=== PATIENT | female | born 1980 | race Caucasian/White ===

== ENCOUNTER 2023-10-07 12:12 | Emergency (ER) | payer MEDICARE, SELFPAY ==
--- NOTE | ~2023-10-07 | XR_ITS ---
EXAMINATION: XR knee LT min 4V DATE: 10/07/2023 14:51 INDICATION: Left knee pain and swelling. TECHNIQUE: 4 views of left knee were obtained. COMPARISON: None. FINDINGS: Bone alignment is normal. No fracture. Joint spaces are normal. No knee joint effusion. IMPRESSION: 1. Normal left knee. Reviewed, dictated and finalized at location A. IMPRESSION: 1. Normal left knee.
--- NOTE | ~2023-10-07 | US_ITS ---
EXAMINATION: US venous doppler [facility] DATE: 10/07/2023 15:04 INDICATION: L calf and knee pain . TECHNIQUE: Grayscale images without and with compression and Doppler images of the left lower extremi ty veins were obtained. COMPARISON: None FINDINGS: The left common femoral vein, profunda (deep) femoral vein, femoral vein, popliteal vein, peroneal v ein, posterior tibial veins, gastrocnemius vein, and greater saphenous vein are patent. IMPRESSION: Patent left lower extremity veins. No evidence of deep venous thrombosis. Reviewed, dictated and finalized at location K.
[2023-10-07 12:37] VITALS: BP 149/82; PULSE 115; RESP 16; TEMP 36.4; O2SAT 97
--- NOTE | 2023-10-07 13:07 | ED.LOWEXIN ---
HPI - Extremity Injury (Lower) General Chief Complaint: Extremity Injury, Lower Stated Complaint: left knee swelling Time Seen by Provider: 10/07/23 13:06 Source: patient Mode of arrival: ambulatory Limitations: no limitations History of Present Illness HPI Narrative: Patient is a 43 y/o female who presents to the ED with c/o L knee swelling. Patient reports she woke up yesterday morning with pain and swelling in her L lower anterior knee. 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 States she worked 11 hour shift prior to when the pain began. Denies any known injury. Is able to ambulate, but has pain with this. Has been taking Tylenol for the pain without much relief. Had to call off work. Denies numbness. Denies history of blood clots. Review of Systems Review of Systems: CONSTITUTIONAL: Denies fever, chills, or sweats. MUSCULOSKELETAL: See HPI NEUROLOGIC: Denies headache, dizziness, numbness, or weakness. All systems reviewed & are unremarkable except as noted in HPI and below Exam Narrative: GENERAL: Well appearing, morbidly obese with BMI of 40.6, non-toxic, in no acute distress. HEAD: Normocephalic, atraumatic. RESPIRATORY: Airway patent, respirations nonlabored. CARDIOVASCULAR: Regular rate and rhythm. Pedal pulses intact and easily palpable. MUSCULOSKELETAL: Moves all extremities. Tenderness to palpation diffusely throughout left lower anterior knee. Mild swelling noted. No erythema or warmth. Mild tenderness throughout the lower calf, no appreciable lower extremity swelling. Sensation intact. SKIN: Warm, dry, normal color. NEURO: A&O X3. Speech clear. Steady gait. No ataxic movements. PSYCHIATRIC: Appropriate mood and affect. Normal interaction. Course Vital Signs Vital signs: Vital Signs Temperature 97.5 F L 10/07/23 12:37 Pulse Rate 115 H 10/07/23 12:37 Respiratory Rate 16 10/07/23 12:37 Blood Pressure 149/82 H 10/07/23 12:37 Pulse Oximetry 97 10/07/23 12:37 Oxygen Delivery Room Air 10/07/23 12:37 Temperature 97.5 F L 10/07/23 12:37 Pulse Rate 100 10/07/23 15:14 Respiratory Rate 20 10/07/23 15:14 Blood Pressure 135/83 10/07/23 15:14 Pulse Oximetry 96 10/07/23 15:14 Oxygen Delivery Room Air 10/07/23 12:37 MDM - Extremity Injury (Lower) MDM Narrative Medical decision making narrative: Patient?s injury is consistent with musculoskeletal etiology. No signs of neurologic or vascular compromise on physical examination. Compartments are soft without signs of compartment syndrome. XR of left knee unremarkable. No joint effusion or osseous abnormality. Venous Doppler ultrasound of left lower extremity was also obtained and negative for DVT. Pain is consistent with knee strain. Patient is felt to be stable for discharge home and further outpatient management and treatment. Given Ned bandage in the ED. discussed rice treatment, follow-up with orthopedics if pain continues. Discussed return precautions. Patient given work note. Discharged in stable condition. Medical Records Attestation: I reviewed the patient's medical records. Imaging Data Attestation: I personally reviewed and interpreted this imaging study as follows: Radiologist's impression: ITS Impressions Knee X-Ray 10/07/23 14:52 IMPRESSION: 1. Normal left knee. Venous Doppler Study 10/07/23 15:08 IMPRESSION: Patent left lower extremity veins. No evidence of deep venous thrombosis. Discharge Plan Discharge Clinical Impression: Strain of left knee Qualifiers: Encounter type: initial encounter Qualified Code(s): S86.912A - Strain of unspecified muscle(s) and tendon(s) at lower leg level, left leg, initial encounter Patient Disposition: Home, Self-Care Condition: Stable Instructions: Antibiotic Form, Knee Sprain (ED), P.R.I.C.E. Treatment (ED) Additional Instructions: Your imaging did not show any mayte
[2023-10-07] MEDS: HYDROcodone/acetaminophen (*CRX) 5-325 MG TABLET 1 TAB PO (13:25)
[2023-10-07 15:14] VITALS: BP 135/83; PULSE 100; RESP 20; O2SAT 96
== END 2023-10-07 15:26 | disposition home or self-care (01) ==
PROVIDERS: Emergency Provider Physician Assistant
DX: S86.912A Strain of unspecified muscle(s) and tendon(s) at lower leg level, left leg, initial encounter (principal); M79.662 Pain in left lower leg; X50.9XXA Other and unspecified overexertion or strenuous movements or postures, initial encounter
CPT/HCPCS: 73564; 93971; 99284; A9270

== ENCOUNTER 2023-10-10 17:40 | Inpatient (IN) | payer MEDICARE, SELFPAY ==
[2023-10-10] VITALS (7 sets, daily range): BP systolic 91–139; BP diastolic 63–93; PULSE 73–103; RESP 14–18; TEMP 36.1–36.7; O2SAT 96–99; BMI 42.0
--- NOTE | ~2023-10-10 | CT_ITS ---
Procedure: CT knee LT wo con Ordering provider: Laura Gonzalez MD History: . poss occult fx? . Comparison: None. Technique: Thin slice axial CT of the No IV contrast was given. Sagittal and coronal reformatted imag es were also obtained and reviewed. Radiation reduction technique utilized. Findings: BONES: Artifact is seen in the area of the distal femur. No definite fracture. JOINT SPACES: Normal. SOFT TISSUES: Lucency is seen in the biceps muscle posterior to the knee which may indicate a hemato ma or lipoma and measures 1.9 cm. Follow-up advised. Opacification in the lateral and medial collater al ligaments is noted in the area of the tibia. IMPRESSION: No definite fractures seen. Lucency is seen in the biceps muscle posterior to the knee which may indicate a hematoma or lipoma a nd measures 1.9 cm. Follow-up advised. Reviewed, dictated and finalized at location A. IMPRESSION: No definite fractures seen. Lucency is seen in the biceps muscle posterior to the knee which may indicate a hematoma or lipoma and measures 1.9 cm. Follow-up advised.
--- NOTE | 2023-10-10 17:56 | ECG_ITS ---
[facility] [address] Test Date: 2023-10-10 Pat Name: Esther Marc Department: Room: Gender: F Correspondence Analyst: : 1980 Requested By: Laura Moreno Order Number: [id number] Flavio MD: Jaswant Talbot M.D. Measurements Intervals [place] Rate: 91 P: -12 KS: 151 QRS: 6 QRSD: 78 T: 5 QT: 346 QTc: 427 Interpretive Statements SINUS RHYTHM LOW QRS VOLTAGE IN PRECORDIAL LEADS [QRS DEFLECTION < 1.0 mV IN CHEST LEADS] POOR R-WAVE PROGRESSION ABNORMAL ECG No previous ECG available for comparison Electronically Signed On 10-11-2023 08:59:37 CDT by Jaswant Talbot M.D.
--- NOTE | 2023-10-10 17:57 | PC.NURSE ---
poison control called. Pt well over toxic level. recommend starting acetadote
--- NOTE | 2023-10-10 17:59 | ED.OVERDOSE ---
HPI - Overdose General Chief Complaint: Overdose Stated Complaint: accidental OD Time Seen by Provider: 10/10/23 17:49 Source: patient Mode of arrival: ambulatory Limitations: no limitations History of Present Illness HPI Narrative: Patient presents with accidental Tylenol overdose. She took 3000mg acetaminophen this morning for left knee pain, peristant after already being seen in the ED for this complaint a few days ago. She called her PCP and beleived she had been told to take an additional 14,000 mg acetaminophen which she did at approximately 1pm. Total 17,000mg in the form of 500mg tabletes. Adamently denies SI. She is now having RUQ abdominal pain and nausea. Related Data Home Medications Medication Instructions Recorded Confirmed Paxil 5 mg PO DAILY 10/11/23 10/11/23 Protonix 40 mg PO DAILY 10/11/23 10/11/23 albuterol sulfate 90 mcg/actuation 90 mcg inhalation DAILY 10/11/23 10/11/23 aerosol inhaler albuterol sulfate 90 mcg/actuation 90 mcg inhalation PRN PRN SOB 10/11/23 10/11/23 aerosol inhaler bupropion HCl 300 mg 24 hr tablet, 300 mg PO DAILY 10/11/23 10/11/23 extended release clonazepam 1 mg tablet 1 mg PO DAILY 10/11/23 10/11/23 dextroamphetamine-amphetamine 15 30 mg PO DAILY 10/11/23 10/11/23 mg tablet dextroamphetamine-amphetamine 15 30 mg PO HS 10/11/23 10/11/23 mg tablet nicotine 7 mg transdermal DAILY 10/11/23 10/11/23 topiramate 100 mg tablet 100 mg PO DAILY 10/11/23 10/11/23 Allergies Allergy/AdvReac Type Severity Reaction Status Date / Time amoxicillin [From Augmentin] Allergy Rash Verified 10/10/23 18:04 Antihistamines - Alkylamine Allergy Anxiety Verified 10/10/23 18:03 ciprofloxacin Allergy Rash Verified 10/10/23 18:03 clavulanic acid Allergy Rash Verified 10/10/23 18:04 [From Augmentin] cyclobenzaprine Allergy Muscle Verified 10/10/23 18:03 Spasms dicyclomine Allergy Rash Verified 10/10/23 18:03 diphenhydramine Allergy Anxiety Verified 10/10/23 18:03 gabapentin Allergy Itching Verified 10/10/23 18:03 indomethacin Allergy Unknown Verified 10/10/23 18:04 ketorolac Allergy Rash Verified 10/10/23 18:03 methocarbamol Allergy Agitated Verified 10/10/23 18:03 metoclopramide Allergy Hives Verified 10/10/23 18:03 montelukast Allergy Anxiety Verified 10/10/23 18:03 naproxen Allergy Nausea Verified 10/10/23 18:03 nickel Allergy Blister Verified 10/10/23 18:03 NSAIDS (Non-Steroidal Allergy Nausea and Verified 10/10/23 18:03 Anti-Inflamma Vomiting prochlorperazine Allergy Anxiety Verified 10/10/23 18:03 PMFSH Family History Family History Mother Thyroid activity decreased Hypertension Breast cancer Heart disease Father Heart disease Parkinson disease Grandparent Kidney cancer, primary, with metastasis from kidney to other site Father FHx: stomach cancer Sibling Parkinson disease Social History Social History Years smoked: 28 Smoking status: Current every day smoker Tobacco type: cigarettes Alcohol intake: never Substance use: never Substance use type: does not use Do You Feel Safe in your Home?: Yes Lack of Transportation: YES Lack of Food: Sometimes True Current Housing: I Have Housing Concerned About Future Housing: YES Difficulty Paying Gas/Electric Bills: YES Difficulty Paying for Meds: YES Currently Unemployed: No Education: High School Diploma/GED Difficulty w/ Childcare or Family Care: No Spiritual care concerns: No Exam Narrative: GENERAL: , well-nourished, and in no acute distress though appears uncomfortable and nauseated. HEAD: Normocephalic, atraumatic. EYES: Non injected, non icteric. ENT: Nares clear, no rhinorrhea or epistaxis. NECK: Supple. CHEST: Speaking in full sentences. No respiratory distress. HEART: Regular rate and rhythm. . ABDOMEN: Soft, nondistended. Mild TTP in RUQ. EXTR
[2023-10-10] MEDS: SODIUM CHLORIDE 0.9% IV 1,000 ML 999 ML IV CONT (18:07)
[2023-10-10 18:19] LABS: Basophils Absolute Auto 0.1 K/mm3 (0.0-0.1); Basophils Percent Auto 0.8 % (0.2-1.2); Eosinophils Absolute Auto 0.3 K/mm3 (0-0.3); Eosinophils Percent Auto 3.6 % (0-4.4); Hematocrit 42.1 % (37.0-47.0); Hemoglobin 14.2 g/dL (12.0-15.0); Immature Granulocyte Absolute 0.03 K/mm3 (0.00-0.031); Immature Granulocyte Percent A 0.4 % (0-0.5); Lymphocytes Absolute Auto 2.44 K/mm3 (0.9-3.2); Lymphocytes Percent Auto 32.2 % (18.3-44.2); Mean Corpuscular HGB Conc 33.7 g/dl (32-36); Mean Corpuscular Hemoglobin 30.7 pg (26-34); Mean Corpuscular Volume 91.1 fl (80-100); Mean Platelet Volume 10.3 fl (7.4-10.4); Monocytes Absolute Auto 0.5 K/mm3 (0.1-0.6); Neutrophils Absolute Auto 4.2 K/mm3 (1.3-6.7); Platelet Count Result 272 k/mm3 (150-375); Red Blood Count 4.62 M/mm3 (4.2-5.4); Red Cell Distribution Width 13.3 % (11.5-14.5); White Blood Count 7.6 K/mm3 (4.5-10.0)
[2023-10-10] MEDS: ACETYLCYSTEINE IV 15,000 MG in DEXTROSE 5% IN WATER 200 ML 275 MG IVPB (18:24)
[2023-10-10 18:31] LABS: Alanine Aminotransferase 25 U/L (6-35); Albumin Level 4.3 g/dL (3.5-5.1); Alkaline Phosphatase 66 U/L (38-126); Anion Gap 8 mmol/L (4-12); Aspartate Amino Transferase 25 U/L (14-36); Bilirubin,Total 0.5 mg/dL (0.2-1.3); Blood Urea Nitrogen 21 mg/dL (7-17); Calcium 9.4 mg/dL (8.4-10.2); Carbon Dioxide 26 mmol/L (22-30); Chloride 105 mmol/L (98-107); Estimated CRCL calculation 86 ml/min; Estimated Glomerular Filt Rate > 60; Glucose 104 mg/dL (65-110); Magnesium 1.8 mg/dL (1.6-2.3); Potassium 3.8 mmol/L (3.4-5.0); Sodium 139 mmol/L (137-145)
[2023-10-10 18:32] LABS: Alanine Aminotransferase 25 U/L (6-35); Albumin Level 4.3 g/dL (3.5-5.1); Alkaline Phosphatase 66 U/L (38-126); Aspartate Amino Transferase 24 U/L (14-36); Bilirubin,Total 0.5 mg/dL (0.2-1.3); Phosphorus 4.7 mg/dL (2.5-4.5); Prothrombin Time 13.1 Seconds (11.1-14.7)
[2023-10-10 18:33] LABS: Lactic Acid Reflex 0.9 mmol/L (0.7-2.0); Partial Thromboplastin Time 31.6 Seconds (22.3-36.8)
[2023-10-10 19:12] LABS: Alveolar/Arterial O2 Gradient 32.2 mmHg; Base Excess ABG 0.5 mEq/l (+/-2.0); Carboxyhemoglobin 3.9 % THb (0-2.0); Fractional Inspired Oxygen 21 %; Methemoglobin ABG 0.1 %THb (0-1.5); Oxygen Content ABG 17.8 %vol (16.0-22.0); Oxygen Saturation ABG 94.2 % (95.0-100.0); Oxyhemoglobin 90.2 % THb (90.0-100.0); PCO2 ABG 40.1 mmHg (35.0-45.0); PO2 ABG 69.5 mmHg (80.0-100.0); PO2 FiO2 Ratio Arterial Blood 3.31 %; Reduced Hemoglobin 5.8 %THb (0-5.0); pH ABG 7.413 (7.350-7.450)
[2023-10-10 19:13] LABS: Device ROOM AIR; Modified Allen's Test Pass; Site Drawn RIGHT RADIAL
--- NOTE | 2023-10-10 19:18 | PC.NURSE ---
This RN assumed care of pt @[id number]
[2023-10-10 19:49] LABS: Appearance Urine Clear (Clear); Bacteria Urine 4+ /hpf; Bilirubin Urine Negative (Negative); Blood Urine Negative (Negative); Color Urine Yellow (Yellow); Glucose Urine UA Negative (Negative); Ketones Urine 3+ mg/dL (Negative); Leukocyte Esterase Ur 1+ LEU/UL (Negative); Nitrate Urine Negative (Negative); Non Pathogenic Casts 0-2; Protein Urine Negative (Negative); RBC Urine 0-2 /hpf (0-2); Squamous Epithelial Cell Urine Moderate /hpf (Few); Urobilinogen Urine 0.2 mg/dL (<2.0); pH Urine 5.5 (5.0-9.0)
[2023-10-10 19:53] LABS: Glucose Point of Care 129 mg/dl (65-105)
[2023-10-10 19:57] LABS: Add Urine Microscopic? YES; Specific Grav Ur 1.042 (1.001-1.035)
[2023-10-10] MEDS: MORPHINE SULFATE (*CRX) 4 MG/ML INJ IV PUSH ×2 (20:16→22:37)
[2023-10-10] MEDS: ONDANSETRON INJ 4 MG/2 ML VIAL IV PUSH ×2 (20:17→22:37)
[2023-10-10] MEDS: ACETYLCYSTEINE IV 5,000 MG in DEXTROSE 5% IN WATER 500 ML 131.25 MG IVPB (20:17)
[2023-10-10 21:05] LABS: Acetaminophen 89 ug/mL (10-30); Ethanol < 10 mg/dL (<10); Salicylate < 1.0 mg/dL (2-20)
--- NOTE | 2023-10-10 21:26 | PC.NURSE ---
Nereida RN @poison control given update at this time. Poison control would like labs (AST, ALT, PTT, Tylenol levels) repeated after 3rd bag of Acetylcysteine has been infusing for 14 hours. Continue on same treatment plan. Pt remains stable, a&ox4. Pt has c/o upper abd pain, nausea.
--- NOTE | 2023-10-10 22:40 | PM.IMHP ---
H&P: HPI History of Present Illness Date/Time: 10/10/23 22:40 Chief Complaint: ER for evaluation for worsening right-sided abdominal pain after taking 34 Tylenol pills Narrative: Our patient is a morbidly 43 years old female who is complaining of worsening pain in her right knee to the point that she took 6 Tylenol pills (3000 mg) with not much relief. She called her PCPs office and there was incorrect communication between them where she understood that she was told that she can take additional 62951 mg of Tylenol. She took 28 more Tylenol pills making it a total of 34 pills x 500 mg each (total 21961 mg of Tylenol). Immediately afterwards, she started having right sided abdominal pain which got her concerned and she came to the ER for evaluation. She was worked up in the ER and was told by the ER physician that she can maximum have 4000 mg Tylenol daily and her signs and symptoms were consistent with unintentional Tylenol overdose. Tylenol level was done today which was elevated at 89. Poison Control consulted who spoke with the ER physician in detail and gave her detailed instructions regarding Tylenol overdose treatment. She is being admitted to IMU for continuous cardiopulmonary monitoring, further evaluation, workup and medical management. Review of Systems Review of Systems: 14 systems were reviewed with pertinent positives and negatives per HPI. Except as documented in the HPI/progress notes, all other systems were reviewed and are negative. All systems reviewed & are unremarkable except as noted in HPI and below PMFSH Family History Family History Mother Thyroid activity decreased Hypertension Breast cancer Heart disease Father Heart disease Parkinson disease Grandparent Kidney cancer, primary, with metastasis from kidney to other site Father FHx: stomach cancer Sibling Parkinson disease Social History Social History Years smoked: 28 Smoking status: Current every day smoker Tobacco type: cigarettes Alcohol intake: never Substance use: never Substance use type: does not use Do You Feel Safe in your Home?: Yes Lack of Transportation: YES Lack of Food: Sometimes True Current Housing: I Have Housing Concerned About Future Housing: YES Difficulty Paying Gas/Electric Bills: YES Difficulty Paying for Meds: YES Currently Unemployed: No Education: High School Diploma/GED Difficulty w/ Childcare or Family Care: No Spiritual care concerns: No Meds Home Medications and Allergies Home Medications Medication Instructions Recorded Confirmed Type Paxil 5 mg PO DAILY 10/11/23 10/11/23 History Protonix 40 mg PO DAILY 10/11/23 10/11/23 History albuterol sulfate 90 mcg/actuation 90 mcg inhalation DAILY 10/11/23 10/11/23 History aerosol inhaler albuterol sulfate 90 mcg/actuation 90 mcg inhalation PRN PRN SOB 10/11/23 10/11/23 History aerosol inhaler bupropion HCl 300 mg 24 hr tablet, 300 mg PO DAILY 10/11/23 10/11/23 History extended release clonazepam 1 mg tablet 1 mg PO DAILY 10/11/23 10/11/23 History dextroamphetamine-amphetamine 15 30 mg PO DAILY 10/11/23 10/11/23 History mg tablet dextroamphetamine-amphetamine 15 30 mg PO HS 10/11/23 10/11/23 History mg tablet nicotine 7 mg transdermal DAILY 10/11/23 10/11/23 History topiramate 100 mg tablet 100 mg PO DAILY 10/11/23 10/11/23 History Allergies Allergy/AdvReac Type Severity Reaction Status Date / Time amoxicillin [From Augmentin] Allergy Rash Verified 10/10/23 18:04 Antihistamines - Alkylamine Allergy Anxiety Verified 10/10/23 18:03 ciprofloxacin Allergy Rash Verified 10/10/23 18:03 clavulanic acid Allergy Rash Verified 10/10/23 18:04 [From Augmentin] cyclobenzaprine Allergy Muscle Verified 10/10/23 18:03 Spasms dicyclomine Allergy Rash Verified 10/10/23 18:03 diphenhydramine Allergy An
[2023-10-11] VITALS (13 sets, daily range): BP systolic 100–130; BP diastolic 50–77; PULSE 77–103; RESP 12–96; TEMP 36.6–37.3; O2SAT 20–97
[2023-10-11 00:08] LABS: Barbiturate Screen Urine Negative (Negative); Benzodiazepines Screen Urine Positive (Negative)
--- NOTE | 2023-10-11 00:21 | ADMGEN ---
This patient, Esther Marc, was admitted to IMU Room 205-02. Patient/family oriented to hospital policies and general routines including ID bracelet, bed and alarms, visiting hours, pain management, procedures, bathroom and other care routines, personal items, smoking policy, room service/diet, and visiting hours. Information on how to activate the Rapid Response Team has been discussed. Patient/Family are encouraged to report perceived risks to care and to ask questions if they do not understand what they are told or what they should do. Pt arrived to unit at 0013
[2023-10-11 00:23] LABS: Amphetamine Screen Urine Negative (Negative); Cocaine Screen Urine Negative (Negative); Methadone Screen Urine Negative (Negative); Opiate Screen Urine Negative (Negative); Phencyclidine Screen Urine Negative (Negative)
[2023-10-11 01:44] LABS: Cannabinoid Screen Urine Negative (Negative)
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
--- NOTE | 2023-10-11 04:09 | PC.NURSE ---
Addendum entered by Karina Basurto RN 10/11/23 04:10: Due to large quantity of Tylenol further pain medication is not ordered. Original Note: Follow up concerning patient receiving crackers. Primary RN notified this tank charger - patient had requested crackers d/t being nauseous all day.
[2023-10-11] MEDS: ALBUTEROL SULFATE (*SP) AEROSOL 1 PUFF INHALATION (08:08)
[2023-10-11] MEDS: buPROPion HCL XL (24 HR) 150 MG TABCR 300 MG PO (08:31)
[2023-10-11] MEDS: clonazePAM (*CRX) 0.5 MG TABLET 1 MG PO (08:31)
[2023-10-11] MEDS: TOPIRAMATE 100 MG TABLET PO (08:32)
[2023-10-11] MEDS: NICOTINE (*PBKC) 7 MG PATCH 1 PATCH TRANSDERM (08:32)
[2023-10-11] MEDS: PANTOPRAZOLE 40 MG TABLET PO (08:32)
--- NOTE | 2023-10-11 09:10 | PM.CNOR ---
Assessment and Plan Assessment and plan (1) Strain of left knee: Qualifiers: Encounter type: initial encounter Qualified Code(s): S86.912A - Strain of unspecified muscle(s) and tendon(s) at lower leg level, left leg, initial encounter <INDIRA Dumont - Last Filed: 10/11/23 09:10> Code(s): S86.912A - Strain of unspecified muscle(s) and tendon(s) at lower leg level, left leg, initial encounter <INDIRA Dumont - Last Filed: 10/11/23 09:10> Status: Inactive <INDIRA Dumont - Last Filed: 10/11/23 09:10> Assessment and Plan: New patient evaluation for chief complaint Left knee pain. History, physical exam and radiographs reviewed with the patient. Emergency room visit and CT scan of the left knee reviewed and discussed with patient. Left knee strain. Discussed the condition, nature, etiology and course of natural history with the patient. Treatment options including surgical and nonoperative treatment were reviewed. Risks and benefits of each as well as alternatives reviewed. The patient's questions were answered. Conservative treatment ice, compression and elevation. Ned wrap. Weight-bearing as tolerated. May discharge from orthopedic standpoint when patient medically stable. <Raffy Melgoza MD - Last Filed: 10/11/23 13:14> History of Present Illness HPI Consult date: 10/11/23 <INDIRA Dumont - Last Filed: 10/11/23 09:10> 10/11/23 <Raffy Melgoza MD - Last Filed: 10/11/23 13:14> Requesting physician: Abiodun Whitley MD <Raffy Melgoza MD - Last Filed: 10/11/23 13:14> Chief complaint: Knee pain <INDIRA Dumont - Last Filed: 10/11/23 09:10> Narrative: 43-year-old with 1 week history of left knee pain. Reports injury of twisting knee while at work. She works as a food service counter clerk. Noted swelling and pain of the left knee subsequent. No prior problems with the knee. Denies numbness or tingling. She has had issues with right knee with pain and swelling. Was told she had arthritis. <Raffy Melgoza MD - Last Filed: 10/11/23 13:14> Review of Systems Constitutional: Constitutional: Denies fever(s) <Raffy Melgoza MD - Last Filed: 10/11/23 13:14> Eyes: Eyes: Denies blurry vision <Raffy Melgoza MD - Last Filed: 10/11/23 13:14> ENT: Reports Normal hearing present <Raffy Melgoza MD - Last Filed: 10/11/23 13:14> Cardiovascular: Cardiovascular: Denies chest pain and Denies dyspnea <Raffy Melgoza MD - Last Filed: 10/11/23 13:14> Respiratory: Respiratory: Denies dyspnea and Denies wheezing <Raffy Melgoza MD - Last Filed: 10/11/23 13:14> Gastrointestinal: Gastrointestinal: Denies abdominal pain <Raffy Melgoza MD - Last Filed: 10/11/23 13:14> Genitourinary: Genitourinary: Denies urinary urgency <Raffy Melgoza MD - Last Filed: 10/11/23 13:14> Musculoskeletal: Musculoskeletal: Reports as per HPI and Denies numbness <Raffy Melgoza MD - Last Filed: 10/11/23 13:14> Integumentary/Breasts: Skin/Breast: Denies changing lesions and Denies sores <Raffy Melgoza MD - Last Filed: 10/11/23 13:14> Neurologic: Reports Normal hearing present, Denies behavioral changes, Denies confusion, Denies numbness and Denies convulsions <Raffy Melgoza MD - Last Filed: 10/11/23 13:14> Psychiatric: Psychiatric: Denies behavioral changes, Denies confusion and Denies hallucinations <Raffy Melgoza MD - Last Filed: 10/11/23 13:14> Endocrine: Endocrine: Denies heat intolerance <Raffy Melgoza MD - Last Filed: 10/11/23 13:14> Hematologic/Lymphatic: Hematologic/Lymphatic: Denies easy bleeding <Raffy Melgoza MD - Last Filed: 10/11/23 13:14> Allergic/Immunologic: Allergic/Immunologic: Denies wheezing <Raffy Melgoza MD - Last Filed: 10/11/23 13:14> [facility] Family History Family History: Family History Mother Thyroid activity decreas
--- NOTE | 2023-10-11 09:38 | PM.IMPN ---
Progress Note: A&P Assessment and Plan (1) Unintentional Tylenol overdose: Code(s): T39.1X1A - Poisoning by 4-Aminophenol derivatives, accidental (unintentional), initial encounter Status: Acute (2) Right knee pain: Code(s): M25.561 - Pain in right knee Status: Acute (3) Abnormal CT scan: Code(s): R93.89 - Abnormal findings on diagnostic imaging of other specified body structures Status: Acute (4) Morbid obesity due to excess calories: Code(s): E66.01 - Morbid (severe) obesity due to excess calories Status: Acute (5) UTI (urinary tract infection): Code(s): N39.0 - Urinary tract infection, site not specified Status: Acute Plan unintentional [place] [address]28 [place] of Tylenol Poison control contacted by ER physician who recommended IV acetylcysteine for Tylenol overdose Poison control would like labs (AST, ALT, PTT, Tylenol levels) repeated after 3rd bag of Acetylcysteine has been infusing for 14 hours. This will be at approximately 14:00 on 10/11/23... ordered as such by ER physician Continue with IV acetylcysteine as per poison Control instructions Patient does not have any suicidal ideation Urinalysis was done which shows finding consistent with UTI Follow-up on urine cultures, pending report continue ceftriaxone IV Patient received 1 L of IV hydration in the ER Gentle IV hydration ordered with normal saline at 75 cc/hour for 1000cc Strict input and output monitoring Monitor renal functions closely, normal Right knee CT scan ordered which showed Lucency is seen in the biceps muscle posterior to the knee which may indicate a hematoma or lipoma and measures 1.9 cm. Follow-up advised. Orthopedic consult ordered for evaluation and further treatment recommendations DC planning once patient is stable and cleared by poison Control and Orthopedics for discharge Strictly advised patient not to take any more than 4000 mg of Tylenol on a daily basis now repeated acetaminophen level undetectable liver enzyme resume normal limit, discontinue acetylcysteine Tobacco abuse counseling: Patient smokes cigarettes on a chronic basis. Strictly advised patient to cut down on or quit smoking. Nicotine patch offered. ~5 minutes spent on tobacco cessation counseling with the patient. Subjective Date/time seen: 10/11/23 09:38 Interval history: I saw and examined the patient today, patient still has left knee pain, patient denies intentional overdose of Tylenol. Patient denies abdomen pain nausea vomiting. Patient also denies chest pain shortness of breath.headache, focal weakness. Exam Narrative: GENERAL: severe Obesity in no acute distress. Well-nourished. - EYES: EOMI. Anicteric. - HENT: Moist mucous membranes. - LUNGS: Clear to auscultation bilaterally, no wheezing, rhonchi, or rales. - CARDIOVASCULAR: Regular rate and rhythm. No murmur. No JVD. - ABDOMEN: Soft, non-tender and non-distended. No palpable masses. - EXTREMITIES: No edema. Peripheral pulses 2+. Non-tender. - NEUROLOGIC: No focal neurological deficits. CN II-XII grossly intact. - PSYCHIATRIC: Awake, Alert and oriented x 3. Appropriate mood and affect. - SKIN: No rashes or lesions. Warm. - LYMPH: No cervical lymphadenopathy. Objective Data Vital Signs Vital Signs: Vital Signs - 24 hr 10/10/23 17:46 10/10/23 17:53 10/10/23 17:53 Temperature 98.0 F Pulse Rate 102 H 103 H Respiratory Rate 16 16 Blood Pressure 91/71 L Pulse Oximetry 96 Oxygen Delivery Room Air 10/10/23 17:53 10/10/23 19:40 10/10/23 20:50 Temperature 97.6 F Pulse Rate 87 Respiratory Rate 14 14 Blood Pressure 114/63 Pulse Oximetry 96 99 Oxygen Delivery Room Air 10/10/23 21:30 10/10/23 23:08 10/10/23 23:50 Temperature 96.9 F L Pulse Rate 73 92 84 Respiratory Rate 16 14 18 Blood Pressure 118/67 93/77 L 139/93 H Pulse Oximetry 97 98 98 Oxygen Delivery 10/11/23 00:
[2023-10-11 10:02] LABS: Hematocrit 40.8 % (37.0-47.0); Hemoglobin 13.4 g/dL (12.0-15.0); Mean Corpuscular HGB Conc 32.8 g/dl (32-36); Mean Corpuscular Hemoglobin 30.3 pg (26-34); Mean Corpuscular Volume 92.3 fl (80-100); Mean Platelet Volume 10.4 fl (7.4-10.4); Platelet Count Result 238 k/mm3 (150-375); Red Blood Count 4.42 M/mm3 (4.2-5.4); White Blood Count 5.5 K/mm3 (4.5-10.0)
[2023-10-11 10:31] LABS: Acetaminophen < 10 ug/mL (10-30)
[2023-10-11 10:32] LABS: Alanine Aminotransferase 24 U/L (6-35); Albumin Level 3.9 g/dL (3.5-5.1); Alkaline Phosphatase 45 U/L (38-126); Anion Gap 5 mmol/L (4-12); Aspartate Amino Transferase 25 U/L (14-36); Bilirubin,Total 0.6 mg/dL (0.2-1.3); Blood Urea Nitrogen 14 mg/dL (7-17); Calcium 8.7 mg/dL (8.4-10.2); Carbon Dioxide 25 mmol/L (22-30); Chloride 106 mmol/L (98-107); Estimated CRCL calculation 121 ml/min; Estimated Glomerular Filt Rate > 60; Glucose 113 mg/dL (65-110); Potassium 3.7 mmol/L (3.4-5.0); Sodium 136 mmol/L (137-145)
[2023-10-11] MEDS: PARoxetine 5 MG TABLET PO (11:24)
[2023-10-11] MEDS: oxyCODONE HCL (*CRX) 5 MG TAB IR PO ×3 (11:42→20:17)
[2023-10-11] MEDS: SODIUM CHLORIDE 0.9% IV 1,000 ML 75 ML IV CONT (14:02)
[2023-10-11 14:10] LABS: Prothrombin Time 13.6 Seconds (11.1-14.7)
[2023-10-11 14:11] LABS: Partial Thromboplastin Time 32.5 Seconds (22.3-36.8)
[2023-10-11 14:12] LABS: Acetaminophen < 10 ug/mL (10-30)
[2023-10-11 14:15] LABS: Alanine Aminotransferase 24 U/L (6-35); Albumin Level 3.9 g/dL (3.5-5.1); Alkaline Phosphatase 50 U/L (38-126); Anion Gap 5 mmol/L (4-12); Aspartate Amino Transferase 27 U/L (14-36); Bilirubin,Total 0.5 mg/dL (0.2-1.3); Blood Urea Nitrogen 14 mg/dL (7-17); Calcium 8.8 mg/dL (8.4-10.2); Carbon Dioxide 25 mmol/L (22-30); Chloride 107 mmol/L (98-107); Estimated CRCL calculation 87 ml/min; Estimated Glomerular Filt Rate > 60; Glucose 114 mg/dL (65-110); Potassium 3.6 mmol/L (3.4-5.0); Sodium 137 mmol/L (137-145)
--- NOTE | 2023-10-11 14:22 | PC.NURSE ---
Spoke with Agens GONZALES from poison control at [id number]. Updated on most recent acetaminophen level of <10 and AST and ALT of 27 and 24, respectively. drawn at 1351. She states no need for more acetylcysteine and stated she would be closing the case.
--- NOTE | 2023-10-11 17:26 | PC.NURSE ---
This patient, Esther Marc, was transferred to [[facility]- ] on 10/11/23 at 1702. Personal belongings sent with patient. Appropriate documentation sent with patient.
[2023-10-12] MEDS: oxyCODONE HCL (*CRX) 5 MG TAB IR PO ×4 (00:50→12:45)
[2023-10-12 05:14] VITALS: BP 106/63; PULSE 83; RESP 12; TEMP 36.1; O2SAT 97
[2023-10-12 06:05] LABS: Basophils Absolute Auto 0.1 K/mm3 (0.0-0.1); Eosinophils Absolute Auto 0.3 K/mm3 (0-0.3); Eosinophils Percent Auto 4.7 % (0-4.4); Hematocrit 40.9 % (37.0-47.0); Hemoglobin 12.9 g/dL (12.0-15.0); Immature Granulocyte Absolute 0.05 K/mm3 (0.00-0.031); Immature Granulocyte Percent A 0.8 % (0-0.5); Lymphocytes Absolute Auto 2.28 K/mm3 (0.9-3.2); Lymphocytes Percent Auto 37.9 % (18.3-44.2); Mean Corpuscular HGB Conc 31.5 g/dl (32-36); Mean Corpuscular Hemoglobin 29.9 pg (26-34); Mean Corpuscular Volume 94.9 fl (80-100); Mean Platelet Volume 10.5 fl (7.4-10.4); Monocytes Absolute Auto 0.5 K/mm3 (0.1-0.6); Neutrophils Absolute Auto 2.9 K/mm3 (1.3-6.7); Neutrophils Percent Auto 47.6 % (45.5-73.1); Platelet Count Result 247 k/mm3 (150-375); Red Blood Count 4.31 M/mm3 (4.2-5.4); Red Cell Distribution Width 13.1 % (11.5-14.5)
[2023-10-12 06:29] LABS: Alanine Aminotransferase 28 U/L (6-35); Albumin Level 3.9 g/dL (3.5-5.1); Alkaline Phosphatase 65 U/L (38-126); Anion Gap 5 mmol/L (4-12); Aspartate Amino Transferase 30 U/L (14-36); Bilirubin,Total 0.4 mg/dL (0.2-1.3); Blood Urea Nitrogen 15 mg/dL (7-17); Calcium 9.1 mg/dL (8.4-10.2); Carbon Dioxide 22 mmol/L (22-30); Chloride 110 mmol/L (98-107); Estimated CRCL calculation 99 ml/min; Estimated Glomerular Filt Rate > 60; Glucose 94 mg/dL (65-110); Magnesium 2.1 mg/dL (1.6-2.3); Phosphorus 3.9 mg/dL (2.5-4.5); Potassium 3.9 mmol/L (3.4-5.0); Sodium 137 mmol/L (137-145)
[2023-10-12 08:00] VITALS: BP 131/86; PULSE 108; RESP 13; TEMP 36; O2SAT 99
[2023-10-12] MEDS: buPROPion HCL XL (24 HR) 150 MG TABCR 300 MG PO (08:06)
[2023-10-12] MEDS: TOPIRAMATE 100 MG TABLET PO (08:06)
[2023-10-12] MEDS: NICOTINE (*PBKC) 7 MG PATCH 1 PATCH TRANSDERM (08:06)
[2023-10-12] MEDS: clonazePAM (*CRX) 0.5 MG TABLET 1 MG PO (08:06)
[2023-10-12] MEDS: PANTOPRAZOLE 40 MG TABLET PO (08:06)
[2023-10-12 08:08] VITALS: O2SAT 97
[2023-10-12] MEDS: ALBUTEROL SULFATE (*SP) AEROSOL 1 PUFF INHALATION (08:08)
[2023-10-12] MEDS: PARoxetine 5 MG TABLET PO (09:28)
--- NOTE | 2023-10-12 10:42 | PM.IMPN ---
Progress Note: A&P Assessment and Plan (1) Unintentional Tylenol overdose: Code(s): T39.1X1A - Poisoning by 4-Aminophenol derivatives, accidental (unintentional), initial encounter Status: Acute (2) Right knee pain: Code(s): M25.561 - Pain in right knee Status: Acute (3) Abnormal CT scan: Code(s): R93.89 - Abnormal findings on diagnostic imaging of other specified body structures Status: Acute (4) Morbid obesity due to excess calories: Code(s): E66.01 - Morbid (severe) obesity due to excess calories Status: Acute (5) UTI (urinary tract infection): Code(s): N39.0 - Urinary tract infection, site not specified Status: Acute Plan unintentional [place] [address] mg of Tylenol Poison control contacted by ER physician who recommended IV acetylcysteine for Tylenol overdose Poison control would like labs (AST, ALT, PTT, Tylenol levels) repeated after 3rd bag of Acetylcysteine has been infusing for 14 hours. This will be at approximately 14:00 on 10/11/23... ordered as such by ER physician patient received IV acetylcysteine as per poison Control instructions Patient does not have any suicidal ideation Urinalysis was done which shows finding consistent with UTI Follow-up on urine cultures, pending report, recommend patient to see primary care doctor for follow-up switch from ceftriaxone IV to cefdinir p.o. today Patient received 1 L of IV hydration in the ER also received Gentle IV hydration ordered with normal saline at 75 cc/hour for 1000cc Strict input and output monitoring Monitor renal functions closely, normal Right knee CT scan ordered which showed Lucency is seen in the biceps muscle posterior to the knee which may indicate a hematoma or lipoma and measures 1.9 cm. Follow-up advised. Orthopedic consult is appreciated, orthopedic surgery recommend medical management patient is stable and cleared by poison Control and Orthopedics for discharge Strictly advised patient not to take any more than 4000 mg of Tylenol on a daily basis now repeated acetaminophen level undetectable liver enzyme resume normal limit, discontinue acetylcysteine Tobacco abuse counseling: Patient smokes cigarettes on a chronic basis. Strictly advised patient to cut down on or quit smoking. Nicotine patch offered. ~5 minutes spent on tobacco cessation counseling with the patient. Subjective Date/time seen: 06/08/24 10:42 Interval history: I saw and examined the patient today, patient feels better today, denies abdomen pain, nausea vomiting, dysuria. Patient afebrile, blood pressure stable, no new issue or event overnight Exam Narrative: GENERAL: severe Obesity in no acute distress. Well-nourished. - EYES: EOMI. Anicteric. - HENT: Moist mucous membranes. - LUNGS: Clear to auscultation bilaterally, no wheezing, rhonchi, or rales. - CARDIOVASCULAR: Regular rate and rhythm. No murmur. No JVD. - ABDOMEN: Soft, non-tender and non-distended. No palpable masses. - EXTREMITIES: No edema. Peripheral pulses 2+. Non-tender. - NEUROLOGIC: No focal neurological deficits. CN II-XII grossly intact. - PSYCHIATRIC: Awake, Alert and oriented x 3. Appropriate mood and affect. - SKIN: No rashes or lesions. Warm. - LYMPH: No cervical lymphadenopathy. Objective Data Vital Signs Vital Signs: Vital Signs - 24 hr 10/11/23 11:10 10/11/23 15:40 10/11/23 12:00 Temperature 99.2 F 99.2 F Pulse Rate 97 103 H 100 Respiratory Rate 20 96 H Blood Pressure 126/77 124/76 Pulse Oximetry 97 20 L Oxygen Delivery 10/11/23 17:25 10/11/23 23:16 10/11/23 20:00 Temperature 97.9 F Pulse Rate 99 99 Respiratory Rate 12 12 Blood Pressure 100/50 L Pulse Oximetry 97 97 Oxygen Delivery Room Air Room Air 10/12/23 05:14 10/12/23 08:08 10/12/23 08:00 Temperature 97.0 F L 96.8 F L Pulse Rate 83 108 H Respiratory Rate 12 13 Blood Pressure 106/63 131/86 Pulse
--- NOTE | 2023-10-12 10:43 | PM.DS ---
DS: Admitting Diagnosis Discharge Date 10/11 Admitting Diagnosis unintentional overdose of acetaminophen DS: Discharge Diagnosis Discharge Diagnosis (1) Unintentional Tylenol overdose: Code(s): T39.1X1A - Poisoning by 4-Aminophenol derivatives, accidental (unintentional), initial encounter Status: Acute (2) Right knee pain: Code(s): M25.561 - Pain in right knee Status: Acute (3) Abnormal CT scan: Code(s): R93.89 - Abnormal findings on diagnostic imaging of other specified body structures Status: Acute (4) Morbid obesity due to excess calories: Code(s): E66.01 - Morbid (severe) obesity due to excess calories Status: Acute (5) UTI (urinary tract infection): Code(s): N39.0 - Urinary tract infection, site not specified Status: Acute DS: Summary Hospital Course Hospital Course: per H&P: 43 years old female who is complaining of worsening pain in her right knee to the point that she took 6 Tylenol pills (3000 mg) with not much relief. She called her PCPs office and there was incorrect communication between them where she understood that she was told that she can take additional 52640 mg of Tylenol. She took 28 more Tylenol pills making it a total of 34 pills x 500 mg each (total 48238 mg of Tylenol). Immediately afterwards, she started having right sided abdominal pain which got her concerned and she came to the ER for evaluation. She was worked up in the ER and was told by the ER physician that she can maximum have 4000 mg Tylenol daily and her signs and symptoms were consistent with unintentional Tylenol overdose. Tylenol level was done today which was elevated at 89. Poison Control consulted who spoke with the ER physician in detail and gave her detailed instructions regarding Tylenol overdose treatment. She is being admitted to IMU for continuous cardiopulmonary monitoring, further evaluation, workup and medical management. the following med issues have been addressed during hospitalization unintentional [place] [address] mg of Tylenol Poison control contacted by ER physician who recommended IV acetylcysteine for Tylenol overdose Poison control would like labs (AST, ALT, PTT, Tylenol levels) repeated after 3rd bag of Acetylcysteine has been infusing for 14 hours. This will be at approximately 14:00 on 10/11/23... ordered as such by ER physician patient received IV acetylcysteine as per poison Control instructions Patient does not have any suicidal ideation Urinalysis was done which shows finding consistent with UTI Follow-up on urine cultures, pending report, recommend patient to see primary care doctor for follow-up switch from ceftriaxone IV to cefdinir p.o. today Patient received 1 L of IV hydration in the ER also received Gentle IV hydration ordered with normal saline at 75 cc/hour for 1000cc Strict input and output monitoring Monitor renal functions closely, normal Right knee CT scan ordered which showed Lucency is seen in the biceps muscle posterior to the knee which may indicate a hematoma or lipoma and measures 1.9 cm. Follow-up advised. Orthopedic consult is appreciated, orthopedic surgery recommend medical management patient is stable and cleared by poison Control and Orthopedics for discharge Strictly advised patient not to take any more than 4000 mg of Tylenol on a daily basis now repeated acetaminophen level undetectable liver enzyme resume normal limit, discontinue acetylcysteine Tobacco abuse counseling: Patient smokes cigarettes on a chronic basis. Strictly advised patient to cut down on or quit smoking. Nicotine patch offered. ~5 minutes spent on tobacco cessation counseling with the patient. Time Spent with Patient Time attestation: Total time spent providing and/or coordinating discharge services: Exam Narrative: GENERAL: severe Obesity in no acute distress. Well-nourished. - EYES: EOMI. Anicteric. - HEN
== END 2023-10-12 13:25 | disposition home or self-care (01) | DRG 918 ==
LOC: ANHED 18:29 → ANHIMU 23:11 → ANH3MEDSUR 10-11 17:03
PROVIDERS: Admitting Provider Family Medicine; Emergency Provider Student in an Organized Health Care Education/Training Program; Visit Provider Hospitalist
DX: T39.1X1A Poisoning by 4-Aminophenol derivatives, accidental (unintentional), initial encounter (principal); Z68.41 Body mass index [BMI] 40.0-44.9, adult; N39.0 Urinary tract infection, site not specified; R93.89 Abnormal findings on diagnostic imaging of other specified body structures; E66.01 Morbid (severe) obesity due to excess calories; F17.210 Nicotine dependence, cigarettes, uncomplicated
CPT/HCPCS: 36415; 36600; 73564; 73700; 80053; 80076; 80307; 81001; 81025; 82375; 82805; 82948; 83050; 83605; 83735; 84100; 85025; 85027; 85610; 85730; 87086; 87088; 93005; 93971; 94640; 96365; 96366; 96375; 96376; 99284; 99285; A9270; J0132; J0696; J2270; J2405; J7030; J7060; J7070

== ENCOUNTER 2023-11-15 02:42 | Emergency (ER) | payer MEDICARE, SELFPAY ==
--- NOTE | ~2023-11-15 | XR_ITS ---
Clinical Indication: Syncope PA and lateral views of the chest: Comparison: None Findings: The lungs are clear, without evidence of focal consolidation or pleural effusion. Cardiome diastinal silhouette is within normal limits. Bones and soft tissues are unremarkable. Impression: Normal chest. Reviewed, dictated and finalized at location . Impression: Normal chest.
--- NOTE | 2023-11-15 02:44 | ECG_ITS ---
Test Date: 2023-11-15 02:53:43 Measurements Intervals [place] Rate: 110 P: 14 [place]: 171 QRS: 15 QRSD: 82 T: 2 QT: 311 QTc: 422 Interpretive Statements SINUS TACHYCARDIA POSSIBLE LEFT ATRIAL ENLARGEMENT LOW QRS VOLTAGE IN PRECORDIAL LEADS ANTEROSEPTAL INFARCT, AGE INDETERMINATE BORDERLINE T WAVE ABNORMALITY- INFERIOR LEADS BASELINE ARTIFACT- I, II, III, AVR, AVL, AVF, V1 ABNORMAL ECG Compared to ECG 10/10/2023 18:34:20 HEART RATE HAS INCREASED Electronically Signed On 11-15-2023 06:48:44 CDT by Tulio Gonzalez D.O.
[2023-11-15 03:09] LABS: Basophils Absolute Auto 0.1 K/mm3 (0.0-0.1); Basophils Percent Auto 0.7 % (0.2-1.2); Eosinophils Absolute Auto 0.2 K/mm3 (0-0.3); Eosinophils Percent Auto 2.8 % (0-4.4); Hematocrit 41.6 % (37.0-47.0); Hemoglobin 14.3 g/dL (12.0-15.0); Immature Granulocyte Absolute 0.03 K/mm3 (0.00-0.031); Immature Granulocyte Percent A 0.4 % (0-0.5); Lymphocytes Absolute Auto 2.46 K/mm3 (0.9-3.2); Mean Corpuscular HGB Conc 34.4 g/dl (32-36); Mean Corpuscular Hemoglobin 30.7 pg (26-34); Mean Corpuscular Volume 89.3 fl (80-100); Monocytes Absolute Auto 0.5 K/mm3 (0.1-0.6); Monocytes Percent Auto 7.2 % (2.6-8.5); Neutrophils Percent Auto 54.9 % (45.5-73.1); Platelet Count Result 243 k/mm3 (150-375); Red Blood Count 4.66 M/mm3 (4.2-5.4); Red Cell Distribution Width 13.1 % (11.5-14.5); White Blood Count 7.2 K/mm3 (4.5-10.0)
[2023-11-15] MEDS: SODIUM CHLORIDE 0.9% IV 1,000 ML 999 ML IV CONT (03:16)
[2023-11-15 03:19] LABS: Alanine Aminotransferase 33 U/L (6-35); Albumin Level 4.8 g/dL (3.5-5.1); Alkaline Phosphatase 72 U/L (38-126); Anion Gap 11 mmol/L (4-12); Aspartate Amino Transferase 27 U/L (14-36); Bilirubin,Total 0.8 mg/dL (0.2-1.3); Blood Urea Nitrogen 14 mg/dL (7-17); Calcium 9.6 mg/dL (8.4-10.2); Carbon Dioxide 25 mmol/L (22-30); Chloride 101 mmol/L (98-107); Estimated CRCL calculation 84 ml/min; Estimated Glomerular Filt Rate > 60; Glucose 115 mg/dL (65-110); Potassium 3.3 mmol/L (3.4-5.0); Sodium 137 mmol/L (137-145)
--- NOTE | 2023-11-15 03:39 | ED.SYNCOPE ---
HPI - Syncope General Chief Complaint: Syncope Stated Complaint: light headed x 2 days, passed out in shower Time Seen by Provider: 11/15/23 02:54 History of Present Illness HPI narrative: Patient is a 43-year-old female who presents ER after having an episode of lightheadedness and losing consciousness. She was in the bath/shower when she began to feel lightheaded and flushed. When she tried step out she was too weak and collapsed. She did strike her had. She has no headache at this time and no change in vision or hearing. Patient reports that she has been having diarrhea for the last week. It is yellow in nature. No recent antibiotic usage. She has been getting lightheaded over last couple days as well. No vomiting. Related Data Home Medications Medication Instructions Recorded Confirmed Paxil 5 mg PO DAILY 10/11/23 10/11/23 Protonix 40 mg PO DAILY 10/11/23 10/11/23 albuterol sulfate 90 mcg/actuation 90 mcg inhalation DAILY 10/11/23 10/11/23 aerosol inhaler albuterol sulfate 90 mcg/actuation 90 mcg inhalation PRN PRN SOB 10/11/23 10/11/23 aerosol inhaler bupropion HCl 300 mg 24 hr tablet, 300 mg PO DAILY 10/11/23 10/11/23 extended release clonazepam 1 mg tablet 1 mg PO DAILY 10/11/23 10/11/23 dextroamphetamine-amphetamine 15 30 mg PO DAILY 10/11/23 10/11/23 mg tablet dextroamphetamine-amphetamine 15 30 mg PO HS 10/11/23 10/11/23 mg tablet nicotine 7 mg transdermal DAILY 10/11/23 10/11/23 topiramate 100 mg tablet 100 mg PO DAILY 10/11/23 10/11/23 Allergies Allergy/AdvReac Type Severity Reaction Status Date / Time amoxicillin [From Augmentin] Allergy Rash Verified 10/10/23 18:04 Antihistamines - Alkylamine Allergy Anxiety Verified 10/10/23 18:03 ciprofloxacin Allergy Rash Verified 10/10/23 18:03 clavulanic acid Allergy Rash Verified 10/10/23 18:04 [From Augmentin] cyclobenzaprine Allergy Muscle Verified 10/10/23 18:03 Spasms dicyclomine Allergy Rash Verified 10/10/23 18:03 diphenhydramine Allergy Anxiety Verified 10/10/23 18:03 gabapentin Allergy Itching Verified 10/10/23 18:03 indomethacin Allergy Unknown Verified 10/10/23 18:04 ketorolac Allergy Rash Verified 10/10/23 18:03 methocarbamol Allergy Agitated Verified 10/10/23 18:03 metoclopramide Allergy Hives Verified 10/10/23 18:03 montelukast Allergy Anxiety Verified 10/10/23 18:03 naproxen Allergy Nausea Verified 10/10/23 18:03 nickel Allergy Blister Verified 10/10/23 18:03 NSAIDS (Non-Steroidal Allergy Nausea and Verified 10/10/23 18:03 Anti-Inflamma Vomiting prochlorperazine Allergy Anxiety Verified 10/10/23 18:03 Review of Systems Review of Systems: All systems reviewed & are unremarkable except as noted in HPI and below Constitutional: Constitutional: Reports no additional constitutional complaints ENT: Reports system reviewed and no additional complaints, except as documented Cardiovascular: Cardiovascular: Reports no additional cardiovascular complaints Respiratory: Respiratory: Reports no additional respiratory complaints Gastrointestinal: Gastrointestinal: Reports no additional gastrointestinal complaints Neurologic: Reports syncope, Denies headache(s), Denies focal weakness and Denies numbness PMFSH Past Medical History Medical History (Updated 11/15/23 @ 03:44 by Edward Diez MD) Anxiety Depression Family History Family History Mother Thyroid activity decreased Hypertension Breast cancer Heart disease Father Heart disease Parkinson disease Grandparent Kidney cancer, primary, with metastasis from kidney to other site Father FHx: stomach cancer Sibling Parkinson disease Social History Social History Years smoked: 28 Smoking status: Current every day smoker Tobacco type: cigarettes Alcohol intake: never Substance use: never Substance use type: does not use Do Y
[2023-11-15 04:13] VITALS: BP 114/76; PULSE 85
[2023-11-15 04:14] VITALS: BP 124/74; PULSE 91
[2023-11-15 04:15] VITALS: BP 119/79; PULSE 100
[2023-11-15 04:27] VITALS: BP 119/79; PULSE 71; RESP 15; O2SAT 95
[2023-11-15 05:40] VITALS: BP 122/79; PULSE 92; RESP 15; O2SAT 98
== END 2023-11-15 05:56 | disposition home or self-care (01) ==
PROVIDERS: Emergency Provider Emergency Medicine; PCP Emergency Medicine
DX: R55 Syncope and collapse (principal); K52.9 Noninfective gastroenteritis and colitis, unspecified; F41.9 Anxiety disorder, unspecified; F32.A Depression, unspecified; F17.210 Nicotine dependence, cigarettes, uncomplicated; Z79.899 Other long term (current) drug therapy; R00.0 Tachycardia, unspecified; R94.31 Abnormal electrocardiogram [ECG] [EKG]
CPT/HCPCS: 36415; 71046; 80053; 85025; 93005; 96360; 99284; J7030

== ENCOUNTER 2023-12-15 17:04 | Emergency (ER) | payer MEDICARE, SELFPAY ==
[2023-12-15 17:22] VITALS: BP 142/91; PULSE 99; RESP 16; TEMP 36.4; O2SAT 98
[2023-12-15 21:55] LABS: Basophils Absolute Auto 0.1 K/mm3 (0.0-0.1); Basophils Percent Auto 0.6 % (0.2-1.2); Eosinophils Absolute Auto 0.2 K/mm3 (0-0.3); Eosinophils Percent Auto 2.3 % (0-4.4); Hematocrit 43.5 % (37.0-47.0); Hemoglobin 14.6 g/dL (12.0-15.0); Immature Granulocyte Absolute 0.02 K/mm3 (0.00-0.031); Immature Granulocyte Percent A 0.2 % (0-0.5); Lymphocytes Absolute Auto 2.07 K/mm3 (0.9-3.2); Mean Corpuscular HGB Conc 33.6 g/dl (32-36); Mean Corpuscular Hemoglobin 30.4 pg (26-34); Mean Corpuscular Volume 90.6 fl (80-100); Mean Platelet Volume 10.8 fl (7.4-10.4); Monocytes Absolute Auto 0.7 K/mm3 (0.1-0.6); Monocytes Percent Auto 8.4 % (2.6-8.5); Neutrophils Absolute Auto 5.3 K/mm3 (1.3-6.7); Neutrophils Percent Auto 63.5 % (45.5-73.1); Platelet Count Result 262 k/mm3 (150-375); Red Cell Distribution Width 13.6 % (11.5-14.5); White Blood Count 8.3 K/mm3 (4.5-10.0)
[2023-12-15 22:01] LABS: Add Urine Microscopic? YES; Appearance Urine Cloudy (Clear); Bacteria Urine Rare /hpf; Bilirubin Urine 2+ (Negative); Blood Urine Negative (Negative); Color Urine Dark Yellow (Yellow); Glucose Urine UA Negative (Negative); Ketones Urine Trace mg/dL (Negative); Leukocyte Esterase Ur Negative LEU/UL (Negative); Need Manual Microscopic Reviewed; Nitrate Urine Negative (Negative); Protein Urine 1+ mg/dL (Negative); Specific Grav Ur 1.035 (1.001-1.035); Squamous Epithelial Cell Urine Few /hpf (Few)
[2023-12-15] MEDS: LACTATED RINGERS 1,000 ML 999 ML IV CONT (22:21)
[2023-12-15] MEDS: ONDANSETRON INJ 4 MG/2 ML VIAL IV PUSH (22:21)
[2023-12-15] MEDS: MORPHINE SULFATE (*CRX) 2 MG/ML INJ IV PUSH (22:50)
[2023-12-15 22:53] VITALS: BP 116/75; PULSE 89; RESP 15; O2SAT 98
[2023-12-15 23:52] LABS: Alanine Aminotransferase 27 U/L (6-35); Albumin Level 4.3 g/dL (3.5-5.1); Alkaline Phosphatase 68 U/L (38-126); Anion Gap 11 mmol/L (4-12); Aspartate Amino Transferase 38 U/L (14-36); Bilirubin,Total 0.8 mg/dL (0.2-1.3); Blood Urea Nitrogen 15 mg/dL (7-17); Calcium 9.1 mg/dL (8.4-10.2); Carbon Dioxide 29 mmol/L (22-30); Chloride 96 mmol/L (98-107); Estimated CRCL calculation 78 ml/min; Estimated Glomerular Filt Rate > 60; Glucose 106 mg/dL (65-110); Lipase 38 U/L (23-300); Potassium 3.4 mmol/L (3.4-5.0); Sodium 136 mmol/L (137-145)
[2023-12-15 23:54] VITALS: BP 125/76; PULSE 89; RESP 16; O2SAT 95
[2023-12-16] MEDS: ONDANSETRON INJ 4 MG/2 ML VIAL IV PUSH (00:52)
[2023-12-16] MEDS: FAMOTIDINE 20 MG/2 ML VIAL IV PUSH (00:52)
[2023-12-16 00:58] VITALS: BP 110/76; PULSE 86; RESP 15; O2SAT 100
--- NOTE | 2023-12-16 01:36 | ED.ABDPAIN ---
HPI - Abdominal Pain General Chief Complaint: Abdominal Pain Stated Complaint: abd pain Time Seen by Provider: 12/15/23 21:39 History of Present Illness HPI narrative: Patient with history of chronic abdominal pain after having cholecystectomy years ago who was recently seen at other hospital 2 days ago and diagnosed with a ventral hernia on CT scan presents here with persistent abdominal pain and nausea vomiting and difficulty keeping things down. Related Data Home Medications Medication Instructions Recorded Confirmed Paxil 5 mg PO DAILY 10/11/23 10/11/23 Protonix 40 mg PO DAILY 10/11/23 10/11/23 albuterol sulfate 90 mcg/actuation 90 mcg inhalation DAILY 10/11/23 10/11/23 aerosol inhaler albuterol sulfate 90 mcg/actuation 90 mcg inhalation PRN PRN SOB 10/11/23 10/11/23 aerosol inhaler bupropion HCl 300 mg 24 hr tablet, 300 mg PO DAILY 10/11/23 10/11/23 extended release clonazepam 1 mg tablet 1 mg PO DAILY 10/11/23 10/11/23 dextroamphetamine-amphetamine 15 30 mg PO DAILY 10/11/23 10/11/23 mg tablet dextroamphetamine-amphetamine 15 30 mg PO HS 10/11/23 10/11/23 mg tablet nicotine 7 mg transdermal DAILY 10/11/23 10/11/23 topiramate 100 mg tablet 100 mg PO DAILY 10/11/23 10/11/23 Allergies Allergy/AdvReac Type Severity Reaction Status Date / Time amoxicillin [From Augmentin] Allergy Rash Verified 10/10/23 18:04 Antihistamines - Alkylamine Allergy Anxiety Verified 10/10/23 18:03 ciprofloxacin Allergy Rash Verified 10/10/23 18:03 clavulanic acid Allergy Rash Verified 10/10/23 18:04 [From Augmentin] cyclobenzaprine Allergy Muscle Verified 10/10/23 18:03 Spasms dicyclomine Allergy Rash Verified 10/10/23 18:03 diphenhydramine Allergy Anxiety Verified 10/10/23 18:03 gabapentin Allergy Itching Verified 10/10/23 18:03 indomethacin Allergy Unknown Verified 10/10/23 18:04 ketorolac Allergy Rash Verified 10/10/23 18:03 methocarbamol Allergy Agitated Verified 10/10/23 18:03 metoclopramide Allergy Hives Verified 10/10/23 18:03 montelukast Allergy Anxiety Verified 10/10/23 18:03 naproxen Allergy Nausea Verified 10/10/23 18:03 nickel Allergy Blister Verified 10/10/23 18:03 NSAIDS (Non-Steroidal Allergy Nausea and Verified 10/10/23 18:03 Anti-Inflamma Vomiting prochlorperazine Allergy Anxiety Verified 10/10/23 18:03 Review of Systems Review of Systems: All systems reviewed & are unremarkable except as noted in HPI and below PMFSH Past Medical History Medical History (Updated 12/16/23 @ 00:37 by Trudy Guzman MD) Anxiety Depression Family History Family History Mother Thyroid activity decreased Hypertension Breast cancer Heart disease Father Heart disease Parkinson disease Grandparent Kidney cancer, primary, with metastasis from kidney to other site Father FHx: stomach cancer Sibling Parkinson disease Social History Social History Years smoked: 28 Smoking status: Current every day smoker Tobacco type: cigarettes Alcohol intake: never Substance use: never Substance use type: does not use Do You Feel Safe in your Home?: Yes Lack of Transportation: YES Lack of Food: Sometimes True Current Housing: I Have Housing Concerned About Future Housing: YES Difficulty Paying Gas/Electric Bills: YES Difficulty Paying for Meds: YES Currently Unemployed: No Education: High School Diploma/GED Difficulty w/ Childcare or Family Care: No Spiritual care concerns: No Exam Narrative: EXAMINATION OF ORGAN SYSTEMS/BODY AREAS: Constitutional: Vital signs per nursing GENERAL: Appears quite tired HEAD: Normal with no signs of head trauma. EYES: EOMI, conjunctiva normal ENT: Hearing grossly intact LUNGS: Nonlabored breathing. HEART: [Regular rate and rhythm] ABD: [Soft], [nontender to palpation] EXT: Normal range of motion SKIN: [No rashes or
== END 2023-12-16 01:00 | disposition home or self-care (01) ==
PROVIDERS: Emergency Provider Emergency Medicine; PCP Emergency Medicine
DX: R10.9 Unspecified abdominal pain (principal); R11.2 Nausea with vomiting, unspecified; F41.9 Anxiety disorder, unspecified; F32.A Depression, unspecified; Z79.899 Other long term (current) drug therapy; F17.210 Nicotine dependence, cigarettes, uncomplicated
CPT/HCPCS: 36415; 80053; 81001; 83690; 85025; 87086; 87088; 96361; 96374; 96375; 96376; 99284; J2270; J2405; J7120

== ENCOUNTER 2024-04-09 02:18 | Emergency (ER) | payer OTHER, SELFPAY ==
--- NOTE | ~2024-04-09 | CT_ITS ---
CT of the Abdomen and Pelvis: Indication: Abdominal pain Technique: 2.5 mm axial scans were obtained through the abdomen and pelvis following intravenous adm inistration of 100 cc of Omnipaque 350. Dose reduction technique was used on this scan by utilizing a utomated exposure control and iterative reconstruction technique. The dose-length product (DLP) was 1 672.91 mGy-cm. Findings: Scans through the lung bases are unremarkable. Liver measures 22.2 cm in length, with diffuse hepatic steatosis. There is pneumobilia with cholecyst ectomy clips present. The spleen, pancreas, adrenals and kidneys are within normal limits. No eviden ce of aortic aneurysm. No lymphadenopathy. No bowel obstruction or bowel wall thickening. There is no evidence to suggest acute appendicitis. Sm all fat-containing umbilical hernia noted. Images through the pelvis were performed. Urinary bladder unremarkable. 2.6 cm left ovarian cyst pres ent.. No ascites. Impression: Hepatomegaly and associated diffuse fatty infiltration of liver. Status post cholecystectomy with associated pneumobilia. 2.6 cm left ovarian cyst. Small fat-containing umbilical hernia. Reviewed, dictated and finalized at location . [employer] S[employer]KER Impression: Hepatomegaly and associated diffuse fatty infiltration of liver. Status post cholecystectomy with associated pneumobilia. 2.6 cm left ovarian cyst. Small fat-containing umbilical hernia.
[2024-04-09 02:45] VITALS: BP 131/81; PULSE 108; RESP 18; TEMP 36.3; O2SAT 100
[2024-04-09 02:45] LABS: BEDSIDEPREGUCG Negative (Negative)
[2024-04-09 02:55] LABS: Basophils Absolute Auto 0.1 K/mm3 (0.0-0.1); Basophils Percent Auto 0.6 % (0.2-1.2); Eosinophils Absolute Auto 0.3 K/mm3 (0-0.3); Eosinophils Percent Auto 3.4 % (0-4.4); Hematocrit 37.9 % (37.0-47.0); Hemoglobin 12.9 g/dL (12.0-15.0); Immature Granulocyte Absolute 0.06 K/mm3 (0.00-0.031); Immature Granulocyte Percent A 0.8 % (0-0.5); Lymphocytes Absolute Auto 2.63 K/mm3 (0.9-3.2); Lymphocytes Percent Auto 33.1 % (18.3-44.2); Mean Corpuscular Volume 91.1 fl (80-100); Mean Platelet Volume 10.3 fl (7.4-10.4); Monocytes Absolute Auto 0.6 K/mm3 (0.1-0.6); Monocytes Percent Auto 8.1 % (2.6-8.5); Neutrophils Absolute Auto 4.3 K/mm3 (1.3-6.7); Platelet Count Result 261 k/mm3 (150-375); Red Blood Count 4.16 M/mm3 (4.2-5.4); Red Cell Distribution Width 13.6 % (11.5-14.5)
[2024-04-09 03:01] LABS: Add Urine Microscopic? YES; Appearance Urine Cloudy (Clear); Bacteria Urine Rare /hpf; Bilirubin Urine Negative (Negative); Blood Urine Negative (Negative); Color Urine Yellow (Yellow); Glucose Urine UA Negative (Negative); Ketones Urine Negative (Negative); Leukocyte Esterase Ur 3+ LEU/UL (Negative); Nitrate Urine Negative (Negative); Non Pathogenic Casts 0-2; Protein Urine Negative (Negative); RBC Urine 0-2 /hpf (0-2); Squamous Epithelial Cell Urine Moderate /hpf (Few); Urobilinogen Urine 0.2 mg/dL (<2.0); WBC Urine 21-50 /hpf (0-3)
[2024-04-09 03:07] LABS: Alanine Aminotransferase 37 U/L (6-35); Albumin Level 4.1 g/dL (3.5-5.1); Alkaline Phosphatase 76 U/L (38-126); Anion Gap 6 mmol/L (4-12); Aspartate Amino Transferase 32 U/L (14-36); Bilirubin,Total 0.4 mg/dL (0.2-1.3); Blood Urea Nitrogen 13 mg/dL (7-17); Carbon Dioxide 26 mmol/L (22-30); Chloride 107 mmol/L (98-107); Estimated CRCL calculation 114 ml/min; Estimated Glomerular Filt Rate > 60; Glucose 101 mg/dL (65-110); Lipase 67 U/L (23-300); Potassium 3.9 mmol/L (3.4-5.0); Sodium 139 mmol/L (137-145)
[2024-04-09] MEDS: ONDANSETRON INJ 4 MG/2 ML VIAL IV PUSH (03:10)
[2024-04-09] MEDS: SODIUM CHLORIDE 0.9% IV 1,000 ML 999 ML IV CONT (03:10)
[2024-04-09] MEDS: MORPHINE SULFATE (*CRX) 4 MG/ML INJ IV PUSH (03:11)
[2024-04-09] MEDS: PANTOPRAZOLE SODIUM IV 40 MG VIAL IV PUSH (03:12)
[2024-04-09 04:35] VITALS: BP 147/97; PULSE 89; RESP 16; TEMP 36.7; O2SAT 98
[2024-04-09 05:27] VITALS: BP 114/60; PULSE 82; RESP 14; TEMP 36.7; O2SAT 93
--- NOTE | 2024-04-09 05:55 | ED.GENADULT ---
HPI - General Adult General Chief complaint: Abdominal Pain Stated complaint: ABD PAIN RADIATING TO BACK Time Seen by Provider: 04/09/24 02:30 History of Present Illness HPI narrative: Patient is a 43-year-old female who presents emergency department with chief complaint of abdominal pain. Patient reports he has been having abdominal pain has been ongoing for the last 3 days patient reports that she has had multiple complications of GI problems and reports that the pain radiates to her back patient reports had nausea with this patient reports that she has prior history of biliary stents Related Data Home Medications Medication Instructions Recorded Confirmed Paxil 5 mg PO DAILY 10/11/23 10/11/23 Protonix 40 mg PO DAILY 10/11/23 10/11/23 albuterol sulfate 90 mcg/actuation 90 mcg inhalation DAILY 10/11/23 10/11/23 aerosol inhaler albuterol sulfate 90 mcg/actuation 90 mcg inhalation PRN PRN SOB 10/11/23 10/11/23 aerosol inhaler bupropion HCl 300 mg 24 hr tablet, 300 mg PO DAILY 10/11/23 10/11/23 extended release clonazepam 1 mg tablet 1 mg PO DAILY 10/11/23 10/11/23 dextroamphetamine-amphetamine 15 30 mg PO DAILY 10/11/23 10/11/23 mg tablet dextroamphetamine-amphetamine 15 30 mg PO HS 10/11/23 10/11/23 mg tablet nicotine 7 mg transdermal DAILY 10/11/23 10/11/23 topiramate 100 mg tablet 100 mg PO DAILY 10/11/23 10/11/23 Allergies Allergy/AdvReac Type Severity Reaction Status Date / Time amoxicillin [From Augmentin] Allergy Rash Verified 10/10/23 18:04 Antihistamines - Alkylamine Allergy Anxiety Verified 10/10/23 18:03 ciprofloxacin Allergy Rash Verified 10/10/23 18:03 clavulanic acid Allergy Rash Verified 10/10/23 18:04 [From Augmentin] cyclobenzaprine Allergy Muscle Verified 10/10/23 18:03 Spasms dicyclomine Allergy Rash Verified 10/10/23 18:03 diphenhydramine Allergy Anxiety Verified 10/10/23 18:03 gabapentin Allergy Itching Verified 10/10/23 18:03 indomethacin Allergy Unknown Verified 10/10/23 18:04 ketorolac Allergy Rash Verified 10/10/23 18:03 methocarbamol Allergy Agitated Verified 10/10/23 18:03 metoclopramide Allergy Hives Verified 10/10/23 18:03 montelukast Allergy Anxiety Verified 10/10/23 18:03 naproxen Allergy Nausea Verified 10/10/23 18:03 nickel Allergy Blister Verified 10/10/23 18:03 NSAIDS (Non-Steroidal Allergy Nausea and Verified 10/10/23 18:03 Anti-Inflamma Vomiting prochlorperazine Allergy Anxiety Verified 10/10/23 18:03 Review of Systems Review of Systems: A 10 system review of systems was completed on the patient and is negative except for what is stated in the HPI. Nursing and ancillary documentation was reviewed. PMFSH Past Medical History Medical History Anxiety Depression Family History Family History Mother Thyroid activity decreased Hypertension Breast cancer Heart disease Father Heart disease Parkinson disease Grandparent Kidney cancer, primary, with metastasis from kidney to other site Father FHx: stomach cancer Sibling Parkinson disease Social History Social History Years smoked: 28 Smoking status: Current every day smoker Tobacco type: cigarettes Alcohol intake: never Substance use: never Substance use type: does not use Do You Feel Safe in your Home?: Yes Lack of Transportation: YES Lack of Food: Sometimes True Current Housing: I Have Housing Concerned About Future Housing: YES Difficulty Paying Gas/Electric Bills: YES Difficulty Paying for Meds: YES Currently Unemployed: No Education: High School Diploma/GED Difficulty w/ Childcare or Family Care: No Spiritual care concerns: No Exam Narrative: GENERAL: Well-appearing, well-nourished, and in no acute distress. HEAD: Normocephalic, atraumatic. EYES: PERRLA and EOMI. ENT: Nares clear, no rhinorrhea or epistaxis. Mucous membranes moist. NECK: Supple. CHEST: Clear to auscultation. No respiratory distress. HEART: Regular rate and rhythm. No murmur heard. Normal peripheral pulses. ABDOMEN: Soft, diffuse tenderness to palpation, nondistended, normal active bowel sounds. EXTREMITIES: Normal range of motion. No edema. SKIN: Warm, dry, no rash. NEURO: No focal deficits. Alert and oriented x3. PSYCH: Normal mood and affect. Course Vital Signs Vital signs: Vital Signs Temperature 36.3 C L 04/09/24 02:45 Pulse Rate 108 H 04/09/24 02:45 Respiratory Rate 18 04/09/24 02:45 Blood Pressure 131/81 04/09/24 02:45 Pulse Oximetry 100 04/09/24 02:45 Temperature 36.7 C 04/09/24 05:27 Pulse Rate 82 04/09/24 05:27 Respiratory Rate 14 04/09/24 05:27 Blood Pressure 114/60 04/09/24 05:27 Pulse Oximetry 93 04/09/24 05:27 Medical Decision Making MDM Narrative Medical decision making narrative: Differential diagnosis includes intra-abdominal infection, UTI, gastroenteritis Laboratory studies were obtained on the patient showed normal CBC normal CMP urinalysis showed 21-[address] scan showed no acute abnormality Vital Signs Vital Signs: Vital Signs Temperature 36.3 C L 04/09/24 02:45 Pulse Rate 108 H 04/09/24 02:45 Respiratory Rate 18 04/09/24 02:45 Blood Pressure 131/81 04/09/24 02:45 Pulse Oximetry 100 04/09/24 02:45 Temperature 36.7 C 04/09/24 05:27 Pulse Rate 82 04/09/24 05:27 Respiratory Rate 14 04/09/24 05:27 Blood Pressure 114/60 04/09/24 05:27 Pulse Oximetry 93 04/09/24 05:27 Lab Data 04/09/24 02:40 04/09/24 02:40 Labs: Lab Results 04/09/24 04/09/24 Range/Units 02:40 02:43 WBC 8.0 (4.5-10.0) K/mm3 RBC 4.16 L (4.2-5.4) M/mm3 Hgb 12.9 (12.0-15.0) g/dL Hct 37.9 (37.0-47.0) % MCV 91.1 (80-100) fl MCH 31.0 (26-34) pg MCHC 34.0 (32-36) g/dl RDW 13.6 (11.5-14.5) % Plt Count 261 (150-375) k/mm3 MPV 10.3 (7.4-10.4) fl Immature Gran % (Auto) 0.8 H (0-0.5) % Neut % (Auto) 54.0 (45.5-73.1) % Lymph % (Auto) 33.1 (18.3-44.2) % [place] % (Auto) 8.1 (2.6-8.5) % Eos % (Auto) 3.4 (0-4.4) % Baso % (Auto) 0.6 (0.2-1.2) % Lymph # (Auto) 2.63 (0.9-3.2) K/mm3 [place] # (Auto) 0.6 (0.1-0.6) K/mm3 Eos # (Auto) 0.3 (0-0.3) K/mm3 Baso # (Auto) 0.1 (0.0-0.1) K/mm3 Abs Immat Gran (auto) 0.06 H (0.00-0.031) K/mm3 Absolute Neuts (auto) 4.3 (1.3-6.7) K/mm3 Absolute Nucleated RBC 0.000 (0.0-0.012) K/mm3 Nucleated RBC % 0.0 (0.0-0.2) % Sodium 139 (137-145) mmol/L Potassium 3.9 (3.4-5.0) mmol/L Chloride 107 (98-107) mmol/L Carbon Dioxide 26 (22-30) mmol/L Anion Gap 6 (4-12) mmol/L BUN 13 (7-17) mg/dL Creatinine 0.70 (0.7-1.0) mg/dL Estim Creat Clear Calc 114 ml/min Estimated GFR > 60 (59 - ) Glucose 101 (65-110) mg/dL Calcium 9.0 (8.4-10.2) mg/dL Total Bilirubin 0.4 (0.2-1.3) mg/dL AST 32 (14-36) U/L ALT 37 H (6-35) U/L Alkaline Phosphatase 76 (38-126) U/L Total Protein 7.0 (6.3-8.2) g/dL Albumin 4.1 (3.5-5.1) g/dL Lipase 67 (23-300) U/L Urine Color Yellow (Yellow) Urine Appearance Cloudy H (Clear) Urine pH 6.0 (5.0-9.0) Ur Specific [place] 1.010 (1.001-1.035) Urine Protein Negative (Negative) mg/dL Urine Glucose (UA) Negative (Negative) mg/dL Urine Ketones Negative (Negative) mg/dL Ur Blood (Man) Negative (Negative) Urine Nitrate Negative (Negative) Urine Bilirubin Negative (Negative) Urine Urobilinogen 0.2 (<2.0) mg/dL Leukocyte Esterase Rfl 3+ H (Negative) GRICEL/UL Urine RBC 0-2 (0-2) /hpf Urine WBC 21-50 H (0-3) /hpf Ur Squamous Epith Cells Moderate (Few) /hpf Urine Bacteria Rare /hpf Urine Casts 0-2 POC Urine HCG, Qual Negative (Negative) Discharge Plan Discharge Clinical Impression: UTI (urinary tract infection) Patient Disposition: Home, Self-Care Condition: Stable Instructions: Antibiotic Form, Urinary Tract Infection in Women (ED), Abdominal Pain (ED) Prescriptions: New sulfamethoxazole-trimethoprim [Bactrim DS] 800-160 mg tablet 1 tablet PO Q12H Qty: 14 0RF No Action Protonix 40 mg PO DAILY clonazepam 1 mg tablet 1 mg PO DAILY dextroamphetamine-amphetamine 15 mg tablet 30 mg PO DAILY dextroamphetamine-amphetamine 15 mg tablet 30 mg PO HS albuterol sulfate 90 mcg/actuation HFA aerosol inhaler 90 mcg inhalation DAILY albuterol sulfate 90 mcg/actuation HFA aerosol inhaler 90 mcg inhalation PRN PRN (Reason: SOB) topiramate 100 mg tablet 100 mg PO DAILY bupropion HCl 300 mg tablet extended release 24 hr 300 mg PO DAILY Paxil 10 mg tablet 5 mg PO DAILY nicotine 7 mg transdermal DAILY oxycodone 5 mg Tablet 5 mg PO Q8H PRN (Reason: Pain Rated 7-10) Qty: 15 0RF cefdinir 300 mg capsule 300 mg PO Q12H Qty: 6 0RF Follow-up/Referrals: Chinmay Tran DO [Physician] - PHYSICIAN,[employer]ARD[employer] MATERIAL TECHNICIAN [Primary Care Provider] - Time of Disposition: 06:54
[2024-04-09] MEDS: SULFAMETHOXAZOLE/TRIMETHOPRIM 800/160 MG DS TABLET 1 TAB PO (07:02)
== END 2024-04-09 07:11 | disposition home or self-care (01) ==
PROVIDERS: Emergency Provider Emergency Medicine
DX: N39.0 Urinary tract infection, site not specified (principal); F41.9 Anxiety disorder, unspecified; F32.A Depression, unspecified; F17.210 Nicotine dependence, cigarettes, uncomplicated; Z79.899 Other long term (current) drug therapy; K76.0 Fatty (change of) liver, not elsewhere classified; Z90.49 Acquired absence of other specified parts of digestive tract; N83.202 Unspecified ovarian cyst, left side; K42.9 Umbilical hernia without obstruction or gangrene
CPT/HCPCS: 36415; 74177; 80053; 81001; 81025; 83690; 85025; 87086; 96361; 96374; 96375; 99284; A9270; J2270; J2405; J2470; J7030; Q9967

== ENCOUNTER 2024-05-04 20:13 | Emergency (ER) | payer OTHER, SELFPAY ==
--- NOTE | ~2024-05-04 | XR_ITS ---
XR foot RT min 3V Ordering provider: Kashif Mendoza MD History: . injury. DROPPED HEAVY MIRROR ON FOOT . Comparison: None. FINDINGS: BONES: No acute fracture or dislocation. JOINT SPACES: Normal. No tarsal coalition. SOFT TISSUES: Soft tissue swelling over the dorsum of the foot. IMPRESSION: No acute osseous abnormality of the right foot. Reviewed, dictated and finalized at location A. T BOOTH OPERATOR
[2024-05-04 20:35] VITALS: BP 148/83; PULSE 117; RESP 16; TEMP 36.2; O2SAT 98
--- NOTE | 2024-05-04 21:47 | ED_ITS ---
HPI - Extremity Injury (Lower) General Chief Complaint: Extremity Injury, Lower Stated Complaint: foot injury Time Seen by Provider: 05/04/24 21:47 Source: patient Mode of arrival: wheelchair Limitations: no limitations History of Present Illness HPI Narrative: This is a 43 year old female that presents to the ER for right foot pain ongoing since yesterday after an injury. Reports she dropped a heavy mirror on her foot. Reports bruising and pain to the area. Reports decreased ROM due to pain. Denies numbness. Related Data Home Medications ?Medication ?Instructions ?Recorded ?Confirmed ?Last Taken ?Type Paxil 5 mg PO DAILY 10/11/23 10/11/23 10/10/23 History Protonix 40 mg PO DAILY 10/11/23 10/11/23 10/10/23 History albuterol sulfate 90 mcg/actuation 90 mcg inhalation DAILY 10/11/23 10/11/23 Unknown History aerosol inhaler albuterol sulfate 90 mcg/actuation 90 mcg inhalation PRN PRN SOB 10/11/23 10/11/23 Unknown History aerosol inhaler bupropion HCl 300 mg 24 hr tablet, 300 mg PO DAILY 10/11/23 10/11/23 10/10/23 History extended release clonazepam 1 mg tablet 1 mg PO DAILY 10/11/23 10/11/23 10/10/23 History dextroamphetamine-amphetamine 15 30 mg PO DAILY 10/11/23 10/11/23 10/10/23 History mg tablet dextroamphetamine-amphetamine 15 30 mg PO HS 10/11/23 10/11/23 10/09/23 History mg tablet nicotine 7 mg transdermal DAILY 10/11/23 10/11/23 Unknown History topiramate 100 mg tablet 100 mg PO DAILY 10/11/23 10/11/23 Unknown History Allergies Allergy/AdvReac Type Severity Reaction Status Date / Time amoxicillin (From Augmentin) Allergy Rash Verified 05/04/24 20:19 Antihistamines - Alkylamine Allergy Anxiety Verified 05/04/24 20:19 ciprofloxacin Allergy Rash Verified 05/04/24 20:19 clavulanic acid (From Allergy Rash Verified 05/04/24 20:19 Augmentin) cyclobenzaprine Allergy Muscle Verified 05/04/24 20:19 Spasms dicyclomine Allergy Rash Verified 05/04/24 20:19 diphenhydramine Allergy Anxiety Verified 05/04/24 20:19 gabapentin Allergy Itching Verified 05/04/24 20:19 indomethacin Allergy Unknown Verified 05/04/24 20:19 ketorolac Allergy Rash Verified 05/04/24 20:19 methocarbamol Allergy Agitated Verified 05/04/24 20:19 metoclopramide Allergy Hives Verified 05/04/24 20:19 montelukast Allergy Anxiety Verified 05/04/24 20:19 naproxen Allergy Nausea Verified 05/04/24 20:19 nickel Allergy Blister Verified 05/04/24 20:19 NSAIDS (Non-Steroidal Allergy Nausea and Verified 05/04/24 20:19 Anti-Inflamma Vomiting prochlorperazine Allergy Anxiety Verified 05/04/24 20:19 Review of Systems Review of Systems: CONSTITUTIONAL: Denies fever MUSCULOSKELETAL: Reports joint pain, and myalgia. NEUROLOGIC: Denies numbness, or weakness. All systems reviewed & are unremarkable except as noted in HPI and below PMFSH Past Medical History Medical History Anxiety Depression Family History Family History Mother Thyroid activity decreased Hypertension Breast cancer Heart disease Father Heart disease Parkinson disease Grandparent Kidney cancer, primary, with metastasis from kidney to other site Father FHx: stomach cancer Sibling Parkinson disease Social History Social History Years smoked: 28 Smoking status: Current every day smoker Tobacco type: cigarettes Alcohol intake: never Substance use: never Substance use type: does not use Do You Feel Safe in your Home?: Yes Lack of Transportation: YES Lack of Food: Sometimes True Current Housing: I Have Housing Concerned About Future Housing: YES Difficulty Paying Gas/Electric Bills: YES Difficulty Paying for Meds: YES Currently Unemployed: No Education: High School Diploma/GED Difficulty w/ Childcare or Family Care: No Spiritual care concerns: No Exam Narrative: GENERAL: Well-appearing, well-nourished, and in no acute distress. HEAD: Normocephalic, atraumatic. EYES: EOMI. EXTREMITIES: Normal range of motion. No obvious deformity. Mild bruising and swelling to the right foot dorsal surface. Normal DP pulse SKIN: Warm, dry, no rash. NEURO: No focal deficits. Alert and oriented x3. PSYCH: Normal mood and affect Course Vital Signs Vital signs: Vital Signs Temperature 97.1 F L 05/04/24 20:35 Pulse Rate 117 H 05/04/24 20:35 Respiratory Rate 16 05/04/24 20:35 Blood Pressure 148/83 H 05/04/24 20:35 Pulse Oximetry 98 05/04/24 20:35 Temperature 97.1 F L 05/04/24 20:35 Pulse Rate 117 H 05/04/24 20:35 Respiratory Rate 16 05/04/24 20:35 Blood Pressure 148/83 H 05/04/24 20:35 Pulse Oximetry 98 05/04/24 20:35 MDM - Extremity Injury (Lower) MDM Narrative Medical decision making narrative: Patient presents to the emergency department for right foot pain after injury yesterday. X-ray without acute osseous abnormalities. Patient is neurovascularly intact. Placed in a postop shoe and given crutches. Instructed to rest, ice and take [id number] pain medication as needed. She is to follow up with primary provider. She was given warnings to return to the ER Differential Diagnosis Differential diagnosis: Likely other (foot fracture, contusion) Imaging Data Radiologist's impression: ITS Impressions Foot X-Ray 05/04/24 20:54 IMPRESSION: No acute osseous abnormality of the right foot. Critical Care Time Critical Care Time Critical Care Time: No Discharge Plan Discharge Clinical Impression: Contusion of foot, right Qualifiers: Encounter type: initial encounter Qualified Code(s): S90.31XA - Contusion of right foot, initial encounter Patient Disposition: Home, Self-Care Condition: Stable Instructions: Contusion in Adults (ED) Additional Instructions: Return to the ER if you experience fever, redness and swelling of your extremity, numbness or any other symptoms that are concerning to you Wear postop shoe and use crutches. No weight on the affected leg until able to bear weight without pain. Ice and elevate extremity. Pain medication as needed and directed. Follow up with your doctor for further care. Patient Language: [place] Prescriptions: No Action Protonix 40 mg PO DAILY clonazepam 1 mg tablet 1 mg PO DAILY dextroamphetamine-amphetamine 15 mg tablet 30 mg PO DAILY dextroamphetamine-amphetamine 15 mg tablet 30 mg PO HS albuterol sulfate 90 mcg/actuation HFA aerosol inhaler 90 mcg inhalation DAILY albuterol sulfate 90 mcg/actuation HFA aerosol inhaler 90 mcg inhalation PRN PRN (Reason: SOB) topiramate 100 mg tablet 100 mg PO DAILY bupropion HCl 300 mg tablet extended release 24 hr 300 mg PO DAILY Paxil 10 mg tablet 5 mg PO DAILY nicotine 7 mg transdermal DAILY oxycodone 5 mg Tablet 5 mg PO Q8H PRN (Reason: Pain Rated 7-10) Qty: 15 0RF cefdinir 300 mg capsule 300 mg PO Q12H Qty: 6 0RF sulfamethoxazole-trimethoprim [Bactrim DS] 800-160 mg tablet 1 tablet PO Q12H Qty: 14 0RF Follow-up/Referrals: Coy,Lawrence Courtney MD [Primary Care Provider] -
== END 2024-05-04 22:17 | disposition home or self-care (01) ==
LOC: ANHED 21:53
PROVIDERS: Emergency Provider Physician Assistant; PCP Family Medicine
DX: S90.31XA Contusion of right foot, initial encounter (principal); F41.9 Anxiety disorder, unspecified; F32.A Depression, unspecified; F17.210 Nicotine dependence, cigarettes, uncomplicated; W20.8XXA Other cause of strike by thrown, projected or falling object, initial encounter
CPT/HCPCS: 73630; 99283